=== PATIENT | male | born 1995 | race Caucasian/White ===

== ENCOUNTER 2017-11-08 07:39 | Emergency (ER) | payer OTHER, MEDICARE ==
[~2017-11-08] VITALS: Ht 144.8 cm; Wt 66.6 kg
[2017-11-08 08:35] LABS: ABSOLUTE BASOPHIL COUNT 0 /CUMM (0.0-0.2); ABSOLUTE EOSINOPHIL COUNT 0 /CUMM (0.0-0.7); ABSOLUTE GRANULOCYTE CT 8.1 /CUMM (1.4-6.5); ABSOLUTE LYMPH COUNT 2.5 /CUMM (1.2-3.4); ABSOLUTE MONOCYTE COUNT 0.1 /CUMM (0.10-0.60); BASOPHIL % 0.1 % (0.0-2.0); EOSINOPHIL % 0 % (0-5); GRANULOCYTE % 75.7 % (42.2-75.2); HEMATOCRIT 35.9 % (42-52); MEAN CORPUSCULAR HGB 28.6 PG (27.0-31.0); MEAN CORPUSCULAR HGB CONC 33.3 G/DL (33.0-37.0); MEAN CORPUSCULAR VOLUME 85.8 FL (80.0-94.0); MEAN PLATELET VOLUME 8.2 FL (7.4-10.4); PLATELET COUNT 340 /CUMM (130-400); RED BLOOD CELL CT 4.19 /CUMM (4.70-6.10); WHITE BLOOD CELL COUNT 10.7 /CUMM (4.8-10.8)
--- NOTE | 2017-11-08 08:48 | ED GENERAL ADULT ---
History of Present Illness General Chief Complaint: Seizure Stated Complaint: SEIZURE THIS AM Source: patient, family Exam Limitations: no limitations Vital Signs & Intake/Output Vital Signs & Intake/Output Vital Signs Date Time Temp Pulse Resp B/P B/P Pulse O2 O2 Flow FiO2 Mean Ox Delivery Rate 11/08 1316 97.7 76 16 107/60 100 Room Air 11/08 1118 97.9 67 16 115/62 100 Room Air 11/08 0745 98.6 92 18 109/75 99 Room Air Allergies Coded Allergies: No Known Allergies (11/08/17) Reconcile Medications Ascorbate Calcium (Vitamin C) 500 MG TABLET 1 TAB PO DAILY VITAMIN SUPPORT ( Reported) Dexamethasone 4 MG TABLET 2 TAB PO STEROID (Reported) Multivitamin (Daily Multiple Vitamin) 1 EACH TABLET 1 TAB PO DAILY VITAMIN SUPPORT (Reported) Triage Note: 22 YO MALE TO TRIAGE WITH MOTHER FOR EVAL FOR SEIZURE THIS AM. PT RECENTLY FINISHED CHEMO FOR TESTICULAR CA AND STATES LAST TIME HE FINISHED THE CHEMO HE HAD 1 SEIZURE AND THEY THOUGH POSSIBLE FROM DEHYDRATION. MOM STATES PT DID NOT FALL TO THE GROUND, STATES SHE CAUGHT HIM. Triage Nurses Notes Reviewed? yes Onset: Abrupt Duration: hour(s): (6), better, gone now Timing: multiple episodes today Injury Environment: home Severity: mild, moderate No Modifying Factors: none Modifying Factors: Improves With: other (BOWEL MOVEMENT ). HPI: 22-year-old male past medical history of Down syndrome and testicular cancer presents for evaluation after a syncopal episode versus seizure. Mom reports that at 4:30 this morning patient woke up AND he did have a bowel movement. PT HAS Been constipated and had not had a bowel movement for one week. Mom reports that while patient had been having the bowel movement he suddenly became unresponsive. His eyes rolled back into his head he became stiff he did not fall but he was lowered to the ground. He came to less than a minute later and return to his baseline. Does not appear to be a post ictal period. Patient was feeling better went back to bed until 7 AM when he had another bowel movement. During this bowel movement a second episode happened. There is never any rhythmic movements. Patient returned to baseline shortly after. He denies chest pain or shortness of breath or any episodes. Dad also reports that a similar episode happened back in June also associated with a bowel movement. (Mario Foss) Past History Travel History Traveled to [place] past 21 day No Medical History Any Pertinent Medical History? see below for history Neurological: DOWNS SYNDROME Cancer(s): TESTICULAR CA Surgical History Surgical History: unobtainable Psychosocial History What is your primary language Thai Tobacco Use: Never used Family History Hx Contributory? No (Mario Foss) Review of Systems Review of Systems Constitutional: Reports: no symptoms. EENTM: Reports: no symptoms. Respiratory: Reports: no symptoms. Cardiovascular: Reports: no symptoms. GI: Reports: no symptoms. Genitourinary: Reports: no symptoms. Musculoskeletal: Reports: no symptoms. Skin: Reports: no symptoms. Neurological/Psychological: Reports: see HPI (SYNCOPE/SEIZURE ). Hematologic/Endocrine: Reports: no symptoms. Immunologic/Allergic: Reports: no symptoms. All Other Systems: Reviewed and Negative (Mario Foss) Physical Exam Physical Exam General Appearance: well developed/nourished, no apparent distress, alert, awake Head: atraumatic, normal appearance Eyes: Bilateral: normal appearance, PERRL, EOMI. Ears, Nose, Throat: normal pharynx, normal ENT inspection, hearing grossly normal Neck: normal inspection, supple, full range of motion Respiratory: normal breath sounds, chest non-tender, no respiratory distress, lungs clear Cardiovascular: regular rate/rhythm, normal peripheral pulses Peripheral Pulses: 2+ radial (R), 2+ radial (L) Gastrointestinal: normal bowel sounds, soft, non-tender, no organomegaly Back: normal inspection, normal range of motion Extremities: normal inspection, normal range of motion, no edema Neurologic/Psych: no motor/sensory deficits, awake, alert, oriented x 3, normal gait Skin: intact, normal color, warm/dry Lymphatic: no anterior cervical an Core Measures ACS in differential dx? No CVA/TIA Diagnosis: No Sepsis Present: No Sepsis Focused Exam Completed? No (Mario Foss) Progress Differential Diagnoses I considered the following diagnoses in my evaluation of the patient: [Seizure disorder, syncopal episode, dehydration, intracranial mass, intracranial hemorrhage,] Plan of Care: Orders Procedure Date/time Status TROPONIN LEVEL 11/08 1205 Complete EKG 11/08 1205 Active Add-on Test (ER Only) 11/08 0813 Active MISTAKE 11/08 0813 Active URINE DRUG SCREEN FOR ER ONLY 11/08 0753 Complete URINALYSIS 11/08 0753 Complete TROPONIN LEVEL 05/07 0753 Complete PROLACTIN 11/08 752 Complete MAGNESIUM 11/08 752 Complete ETHANOL 11/08 752 Complete COMPREHENSIVE METABOLIC PANEL 11/08 752 Complete CBC WITHOUT DIFFERENTIAL 11/08 752 Complete EKG 11/08 752 Active Laboratory Tests 11/08/17 1210: Troponin I < 0.01 11/08/17 0917: Urine Opiates Screen < 100, Methadone Screen < 40, Barbiturate Screen < 60, Ur Phencyclidine Scrn < 6.00, Amphetamines Screen < 100, U Benzodiazepines Scrn < 85, Urine Cocaine Screen < 50, Urine Cannabis Screen < 5.00, Urine Color YEL, Urine Clarity CLEAR, Urine pH 6.0, Ur Specific [place] 1.020, Urine Protein TRACE H, Urine Ketones NEG, Urine Nitrite NEG, Urine Bilirubin NEG, Urine Urobilinogen 0.2, Ur Leukocyte Esterase NEG, Ur Microscopic SEDIMENT EXAMINED, Urine RBC RARE, Urine WBC RARE, Urine Bacteria RARE H, Urine Mucus FEW, Urine Hemoglobin NEG, Urine Glucose NEG 11/08/17 0820: Anion Gap 12, Estimated GFR > 60, BUN/Creatinine Ratio 33.8 H, Glucose 96, Calcium 9.3, Magnesium 1.9, Total Bilirubin 1.0, AST 13 L, ALT 60, Alkaline Phosphatase 60, Troponin I < 0.01, Total Protein 7.2, Albumin 4.6, Globulin 2.6, Albumin/Globulin Ratio 1.8, Prolactin 23.3 H, CBC w Diff NO MAN DIFF REQ, RBC 4.19 L, MCV 85.8, MCH 28.6, MCHC 33.3, RDW 17.0 H, MPV 8.2, Gran % 75.7 H, Lymphocytes % 23.5, Monocytes % 0.7 L, Eosinophils % 0, Basophils % 0.1, Absolute Granulocytes 8.1 H, Absolute Lymphocytes 2.5, Absolute Monocytes 0.1, Absolute Eosinophils 0, Absolute Basophils 0, Serum Alcohol < 10.0 Patient seen and evaluated. He had 2 episodes of syncope versus seizure this morning during bowel movements. He also had a similar episode back in June. Based on history sounds like seizure is less likely as this happened during bowel movements on multiple occasions. There is never any chest pain or shortness of breath he is neurologically intact. There was no rhythmic movements of the extremities. No biting of the tongue. Basic labs were obtained and did not show any acute findings. CT scan of the brain was negative. A repeat EKG troponin will be obtained due to multiple episodes today. Repeat EKG troponin is negative. Patient currently is asymptomatic is feeling well. His vital signs are stable. His mental status is at baseline. Suspect this is vasovagal syncope. Patient was instructed to rest and plenty of fluids avoid straining during bowel movements. Make a follow-up with a primary care doctor and oncologist for a recheck. Discussed return precautions in detail. Case discussed with Dr. Mejia and he agrees. Diagnostic Imaging: Viewed by Me: CT Scan. Discussed w/RAD: CT Scan. Radiology Impression: PATIENT: KEITH MATA PRESENT AGE: 22 PATIENT ACCOUNT NO: [id number] : 94 LOCATION: [facility] ORDERING PHYSICIAN: Mario LILLY SERVICE DATE: 11/08/17 EXAM TYPE: CAT - CT HEAD WO IV CONTRAST EXAMINATION: CT HEAD WITHOUT CONTRAST CLINICAL INFORMATION: 22-year-old man with seizure or syncope. COMPARISON: None TECHNIQUE: Contiguous axial imaging was performed from the skull base to vertex without intravenous administration of contrast. DLP: 520 mGy-cm FINDINGS: There is no evidence of acute intracranial hemorrhage or territorial infarction. No abnormal mass effect or midline shift is seen. [place] to white matter differentiation is well preserved. No extra-axial fluid collections are identified. The ventricles are normal in size. There is no abnormal attenuation within the brain parenchyma. The osseous structures and soft tissues are normal. The mastoid air cells and visualized portions of the paranasal sinuses are well aerated. IMPRESSION: No acute intracranial pathology. DICTATED BY: Goldie Flores MD DATE/TIME DICTATED:01/19 [facility] REP:BELEN DATE/TIME TRANSCRIBED:11/08/171113 CONFIDENTIAL, DO NOT COPY WITHOUT APPROPRIATE AUTHORIZATION. Initial ED EKG: normal sinus rhythm, EARLY REPLOARIZATION PATTERN (Mario Foss) Departure Departure Disposition: HOME OR SELF CARE Condition: Stable Clinical Impression Primary Impression: Vasovagal syncope Referrals: Glenys GARCIA,Teddy Dooley MD,Nathalie Adam (PCP/Family) Additional Instructions: ResT AND DRINK plenty of fluids. Avoid straining during bowel movements. Standup slowly. Make a follow-up with YOUr primary care doctor and oncologist. Also follow-up with provided neurologist as soon as possible. Monitor SYMPTOMS AND return with any concerns. Departure Forms: Customer Survey General Discharge Information (Mario Foss) PA/COMMANDING [employer] Co-Sign Statement Statement: ED Attending supervision documentation- [] I saw and evaluated the patient. I have also reviewed all the pertinent lab results and diagnostic results. I agree with the findings and the plan of care as documented in the PA's/COMMANDING [employer]'s documentation. [x] I have reviewed the ED Record and agree with the PA's/COMMANDING [employer]'s documentation. [] Additions or exceptions (if any) to the PAs/COMMANDING [employer]ER [employer]'s note and plan are summarized below: [] (Hoang Mejia DO) Critical Care Note Critical Care Note Critical Care Time: non-applicable (Mario Foss)
[2017-11-08] MEDS ORDERED: DEXAMETHASONE4 M1 PO (09:09)
[2017-11-08] MEDS ORDERED: DAILY MULTIPLE1 EACH PO (09:09)
[2017-11-08] MEDS ORDERED: VITAMIN C500 M6 PO (09:10)
--- NOTE | 2017-11-08 11:20 | CT SCAN REPORT ---
EXAMINATION: CT HEAD WITHOUT CONTRAST CLINICAL INFORMATION: 22-year-old man with seizure or syncope. COMPARISON: None TECHNIQUE: Contiguous axial imaging was performed from the skull base to vertex without intravenous administration of contrast. DLP: 520 mGy-cm FINDINGS: There is no evidence of acute intracranial hemorrhage or territorial infarction. No abnormal mass effect or midline shift is seen. [place] to white matter differentiation is well preserved. No extra-axial fluid collections are identified. The ventricles are normal in size. There is no abnormal attenuation within the brain parenchyma. The osseous structures and soft tissues are normal. The mastoid air cells and visualized portions of the paranasal sinuses are well aerated. IMPRESSION: No acute intracranial pathology.
[2017-11-08 13:16] VITALS: BP 107/60
== END 2017-11-08 13:15 ==
LOC: ERH 07:39
PROVIDERS: Physician Assistant Medical
DX: R55 Syncope and collapse (principal)
CPT/HCPCS: 80307; 81001; 93005; 93010; G0480